=== PATIENT | male | born 1960 | race Caucasian/White ===

== ENCOUNTER 2025-04-26 18:35 | Inpatient (IN) | payer MEDICARE ==
[2025-04-26 18:58] VITALS: BMI 31.3
[2025-04-26] MEDS ORDERED: Glucagon 1 MG/ML KIT IM PRN (19:44)
[2025-04-26] MEDS ORDERED: Dextrose 50% Abboject 50 ML SYRINGE SLOW IVP PRN (19:44)
[2025-04-26] MEDS ORDERED: Senokot S 8.6-50 MG TAB PO PRN (19:44)
[2025-04-26 20:21] LABS: Iron 50 ug/dL (65-175); Iron Binding Capacity, Total 294 mcg/dL (261-462); Magnesium 1.5 mg/dL (1.6-2.6); Transferrin, Serum 235 mg/dL (163-344)
[2025-04-26 20:27] LABS: Troponin I Less than 0.010 ng/mL (< 0.028)
[2025-04-26 21:48] LABS: Bacteria/HPF None Seen HPF (None Seen); Glucose, Urine (Dipstick) 70 mg/dL (Negative); Leukocyte Negative Leu/uL (Negative); Protein, Urine (Dipstick) Negative (Neg-Trace); RBC/HPF 0-3 HPF (0-3); Specific Gravity, Urine 1.006 (1.002-1.036); WBC/HPF 0-3 HPF (0-3)
[2025-04-26 22:25] LABS: Influenza A by NAA Not Detected (NotDetected); Influenza B by NAA Not Detected (NotDetected); SARS-CoV-2 NAA Rapid Test Not Detected (NotDetected)
[2025-04-27 00:14] LABS: INR-International Normal Ratio 1.2; PTT 33.1 sec (22.9-36.1); Prothrombin Time 14.8 sec (12.0-14.7)
[2025-04-27 00:38] LABS: Hep B Core IgM Index 0.07 S/CO (0-0.79)
[2025-04-27 00:51] LABS: Hep C IgG Ab NONREACTIVE S/CO (NonReactive); Hep C Index 0.10 S/CO (0-0.79)
[2025-04-27 00:52] LABS: Hep A IgM AB NONREACTIVE (NonReactive); Hep A IgM S/CO 0.15 S/CO (0-0.79); Hep B Surf Ag NONREACTIVE S/CO (NonReactive)
[2025-04-27 04:09] LABS: Osmolality, Urine 163 mOsm/kg (50-1200)
[2025-04-27 06:15] LABS: #Basophils Less than 0.03 10x3/uL (0.0-0.2); #Eosinophils 0.03 10x3/uL (0.0-0.7); #Monocytes 0.44 10x3/uL (0.11-0.59); #Neutrophils 1.55 10x3/uL (1.40-6.50); %Basophils 0.3 % (0.0-1.0); %Eosinophils 1.0 % (0.0-10.0); %Lymphocytes 35.0 % (21.0-51.0); %Monocytes 14.0 % (0.0-10.0); %Neutrophils 49.4 % (42.0-75.0); Hematocrit 32.5 % (42.0-52.0); Hemoglobin 11.4 g/dL (14.0-18.0); Mean Corpuscular Hemoglobin 34.4 pg (27.0-31.0); Mean Corpuscular Volume 98.2 fL (78.0-98.0); Platelet Count 128 10x3/uL (130-400); Red Blood Cell (RBC) Count 3.31 mill/uL (4.70-6.10); White Blood Cell (WBC) Count 3.14 10x3/uL (4.8-10.8)
[2025-04-27 06:28] LABS: Osmolality, Serum 269 mOsm/kg (280-301)
[2025-04-27 06:30] LABS: Digoxin Less than 0.19 ng/mL (0.8-2.0)
[2025-04-27 06:32] LABS: ALT (SGPT) 21 U/L (Less than 45); AST (SGOT) 29 U/L (11-34); Albumin 3.9 g/dL (3.1-4.5); Alkaline Phosphatase 37 U/L (40-110); Anion Gap 15 mmol/L (10-20); BUN (Urea Nitrogen) 7 mg/dL (8.4-25.7); Bilirubin, Total 0.5 mg/dL (0.3-1.2); Calc. Creatinine Clearance 215 mL/min (70-130); Calcium 9.0 mg/dL (7.8-10.44); Carbon Dioxide 26 mmol/L (23-31); Chloride 95 mmol/L (98-107); Globulin 3.0 g/dL (2.4-3.5); Glucose 84 mg/dL (80-115); Magnesium 1.7 mg/dL (1.6-2.6); Potassium 3.7 mmol/L (3.5-5.1); Sodium 132 mmol/L (136-145)
[2025-04-27] MEDS ORDERED: Acetaminophen 325 MG TAB PO PRN (08:06)
[2025-04-27] MEDS ORDERED: Acetaminophen 500 MG TAB PO SCH (09:00)
[2025-04-27] MEDS: Gabapentin 400 MG CAP PO SCH (09:28)
[2025-04-27] MEDS: Folic Acid 1 MG TAB PO SCH (09:28)
[2025-04-27] MEDS: Losartan 25 MG TAB PO SCH (09:28)
[2025-04-27] MEDS: Cyanocobalamin (Vitamin B-12) 1,000 MCG TAB PO SCH (09:28)
[2025-04-27] MEDS: Pantoprazole 40 MG DR.TAB PO SCH (09:28)
[2025-04-27] MEDS: Multivit, Therapeutic 1 TAB PO SCH (09:28)
[2025-04-27] MEDS: Apixaban 5 MG TAB PO SCH (09:28)
[2025-04-27] MEDS: Allopurinol 300 MG TAB PO SCH (09:28)
[2025-04-27] MEDS: Magnesium Oxide 400 MG TAB PO SCH (09:28)
[2025-04-27 14:53] LABS: Campy jejuni + coli by PCR Negative (Negative); STEC Shiga Toxin 1+2 Negative (Negative); Salmonella spp. by PCR Negative (Negative); Shigella spp + EIEC by PCR Negative (Negative)
[2025-04-28 03:48] LABS: #Basophils 0.03 10x3/uL (0.0-0.2); #Eosinophils 0.06 10x3/uL (0.0-0.7); #Monocytes 0.61 10x3/uL (0.11-0.59); #Neutrophils 2.34 10x3/uL (1.40-6.50); %Basophils 0.6 % (0.0-1.0); %Eosinophils 1.2 % (0.0-10.0); %Lymphocytes 36.9 % (21.0-51.0); %Monocytes 12.6 % (0.0-10.0); %Neutrophils 48.5 % (42.0-75.0); Hematocrit 32.7 % (42.0-52.0); Hemoglobin 11.3 g/dL (14.0-18.0); Mean Corpuscular Hemoglobin 34.8 pg (27.0-31.0); Mean Corpuscular Volume 100.6 fL (78.0-98.0); Platelet Count 131 10x3/uL (130-400); Red Blood Cell (RBC) Count 3.25 mill/uL (4.70-6.10); White Blood Cell (WBC) Count 4.83 10x3/uL (4.8-10.8)
[2025-04-28 04:02] LABS: ALT (SGPT) 22 U/L (Less than 45); AST (SGOT) 27 U/L (11-34); Albumin 3.8 g/dL (3.1-4.5); Alkaline Phosphatase 39 U/L (40-110); Anion Gap 12 mmol/L (10-20); BUN (Urea Nitrogen) 8 mg/dL (8.4-25.7); Bilirubin, Total 0.3 mg/dL (0.3-1.2); Calc. Creatinine Clearance 207 mL/min (70-130); Calcium 8.8 mg/dL (7.8-10.44); Carbon Dioxide 25 mmol/L (23-31); Chloride 99 mmol/L (98-107); Globulin 2.8 g/dL (2.4-3.5); Glucose 103 mg/dL (80-115); Magnesium 1.7 mg/dL (1.6-2.6); Potassium 4.2 mmol/L (3.5-5.1); Sodium 132 mmol/L (136-145)
[2025-04-28] MEDS: Magnesium Oxide 400 MG TAB PO SCH (08:41)
[2025-04-28] MEDS: Furosemide 20 MG TAB PO SCH (08:42)
[2025-04-28] MEDS: Metamucil PACK PO SCH (08:50)
[2025-04-28] MEDS ORDERED: Iopamidol 370 76% 100 ML VIAL ONE (09:58)
[2025-04-28] MEDS: Furosemide 40 MG TAB PO SCH ×2 (10:21→12:07)
[2025-04-29 03:50] LABS: #Basophils Less than 0.03 10x3/uL (0.0-0.2); #Eosinophils 0.06 10x3/uL (0.0-0.7); #Monocytes 0.52 10x3/uL (0.11-0.59); #Neutrophils 2.43 10x3/uL (1.40-6.50); %Basophils 0.4 % (0.0-1.0); %Eosinophils 1.3 % (0.0-10.0); %Lymphocytes 35.7 % (21.0-51.0); %Monocytes 11.0 % (0.0-10.0); %Neutrophils 51.2 % (42.0-75.0); Hematocrit 31.9 % (42.0-52.0); Hemoglobin 10.9 g/dL (14.0-18.0); Mean Corpuscular Hemoglobin 34.1 pg (27.0-31.0); Mean Corpuscular Volume 99.7 fL (78.0-98.0); Platelet Count 128 10x3/uL (130-400); Red Blood Cell (RBC) Count 3.20 mill/uL (4.70-6.10); White Blood Cell (WBC) Count 4.74 10x3/uL (4.8-10.8)
[2025-04-29 04:04] LABS: ALT (SGPT) 26 U/L (Less than 45); AST (SGOT) 28 U/L (11-34); Albumin 3.6 g/dL (3.1-4.5); Alkaline Phosphatase 34 U/L (40-110); Anion Gap 13 mmol/L (10-20); BUN (Urea Nitrogen) 8 mg/dL (8.4-25.7); Bilirubin, Total 0.4 mg/dL (0.3-1.2); Calc. Creatinine Clearance 218 mL/min (70-130); Calcium 8.6 mg/dL (7.8-10.44); Carbon Dioxide 26 mmol/L (23-31); Chloride 98 mmol/L (98-107); Globulin 2.8 g/dL (2.4-3.5); Glucose 105 mg/dL (80-115); Potassium 3.9 mmol/L (3.5-5.1); Sodium 133 mmol/L (136-145)
[2025-04-29 05:49] LABS: Magnesium 1.7 mg/dL (1.6-2.6)
[2025-04-29 11:40] VITALS: BP 133/72; TEMP 97.5
[2025-04-29] MEDS: Magnesium Oxide 400 MG TAB PO SCH (12:45)
[2025-04-29] MEDS ORDERED: Thiamine 100 MG TAB PO SCH (21:00)
== END 2025-04-29 15:25 | disposition home or self-care (01) | DRG 308 ==
LOC: UNDOADMOB 18:35 → OBS 18:35 → OBSVTOIN 04-27 12:15 → INTOOBSV 04-27 12:15 → UNDODISIN 04-29 15:25
PROVIDERS: ADMIT Student in an Organized Health Care Education/Training Program; ATTEND Student in an Organized Health Care Education/Training Program
DX: I48.91 Unspecified atrial fibrillation (principal); I50.33 Acute on chronic diastolic (congestive) heart failure; E87.1 Hypo-osmolality and hyponatremia; E86.1 Hypovolemia; E83.42 Hypomagnesemia; E87.6 Hypokalemia; D69.6 Thrombocytopenia, unspecified; G56.20 Lesion of ulnar nerve, unspecified upper limb; E11.42 Type 2 diabetes mellitus with diabetic polyneuropathy; Z79.01 Long term (current) use of anticoagulants; Z79.899 Other long term (current) drug therapy; E86.0 Dehydration; Z98.890 Other specified postprocedural states; J02.9 Acute pharyngitis, unspecified; I11.0 Hypertensive heart disease with heart failure
CPT/HCPCS: 36415; 36416; 75635; 76705; 80053; 80074; 80162; 81001; 82607; 82728; 83090; 83540; 83550; 83735; 83880; 83930; 83935; 84300; 84443; 84466; 85025; 85046; 85610; 85730; 87324; 87449; 87505; 87636; 93306; 96374; 97139; G0378; J3411; J7030; Q9967